=== PATIENT | male | born 1985 | race Caucasian/White ===

== ENCOUNTER 2022-04-10 11:34 | Outpatient (CLI) | payer MEDICAID, SELFPAY ==
--- NOTE | 2022-04-10 11:15 | DI.RAD_ITS ---
Exam(s) XR ANKLE RT COMPLETE EXAM: XR ANKLE RT COMPLETE CLINICAL HISTORY: RIGHT ANKLE PAIN. TECHNIQUE: 2D digital imaging was performed of the right ankle. Three images were obtained. AP, la teral and oblique views were obtained. COMPARISON: No exams were available for comparison FINDINGS: BONES: There is periosteal reaction in the distal right fibula 4.1 cm proximal to the tibial talar barrington int. There is a linear area of sclerosis in this region. The findings are most suggestive of a heal ing nondisplaced fracture. No bony destructive lesion is seen. JOINTS: The ankle mortise is normally aligned. SOFT TISSUE: Normal. IMPRESSION: Findings most suggestive of a healing nondisplaced fracture involving the distal right fibula. DATA REPOSITORY: RADIATION DOSE DELIVERED:
== END 2022-04-10 11:35 | disposition home or self-care (01) ==
LOC: DIORS 11:35
PROVIDERS: PCP Family Medicine; Referring Provider Family Medicine; Visit Provider Student in an Organized Health Care Education/Training Program
DX: M25.571 Pain in right ankle and joints of right foot (principal); S82.831A Other fracture of upper and lower end of right fibula, initial encounter for closed fracture; X50.0XXA Overexertion from strenuous movement or load, initial encounter
CPT/HCPCS: 73610